=== PATIENT | female | born 1985 ===

== ENCOUNTER 2024-05-27 18:53 | Inpatient (IN) | payer OTHER ==
[~2024-05-27] VITALS: Ht 152.4 cm; Wt 59.0 kg
[2024-05-27 19:38] LABS: BASOPHILS % (AUTO) 0.8 % (0.0-2.0); EOSINOPHILS % (AUTO) 0.4 % (1.0-6.0); HEMATOCRIT 43.5 % (36-46); HEMOGLOBIN 14.2 g/dL (12.0-16.0); LYMPHOCYTES # (AUTO) 1.7 K/uL (1.0-4.8); LYMPHOCYTES % (AUTO) 16.3 % (22.0-44.0); MEAN CORPUSCULAR HEMOGLOBIN 27.5 pg (26.0-34.0); MEAN CORPUSCULAR HGB CONC 32.8 G/dL (31.0-37.0); MEAN CORPUSCULAR VOLUME 84 fL (80-100); MONOCYTES % (AUTO) 9.3 % (2.0-9.0); NEUTROPHILS # (AUTO) 7.8 K/uL (1.8-7.7); NEUTROPHILS % (AUTO) 73.2 % (40.0-70.0); PLATELET COUNT (AUTO) 441 K/uL (150-450); RED BLOOD CELL COUNT(AUTO) 5.17 MIL/uL (4.00-5.20); RED CELL DISTRIBUTION WIDTH 16.8 % (11.5-14.5); WHITE BLOOD COUNT (AUTO) 10.7 K/uL (4.5-11.0)
[2024-05-27 19:42] LABS: ANION GAP 14 mmol/L (8-16); CALCIUM, TOTAL 9.9 mg/dL (8.8-10.5); CARBON DIOXIDE 26 mmol/L (22-29); CHLORIDE 101 mmol/L (98-107); GLOMERULAR FILTR. RATE CALC > 60 mL/min (>60); GLUCOSE,RANDOM 98 mg/dL (70-110); POTASSIUM 3.8 mmol/L (3.5-5.1); SODIUM SERUM 141 mmol/L (136-145); UREA NITROGEN, BLOOD 12 mg/dL (7-18)
[2024-05-27 19:48] LABS: ALCOHOL, BLOOD (SERUM) < 3 mg/dL (0-10)
[2024-05-27 20:58] LABS: COVID AG,FIA SOURCE NASAL SWAB
[2024-05-27 21:18] LABS: SARS-COV2 (COVID) ANTIGEN,FIA Negative (Negative)
[2024-05-27] MEDS ORDERED: HALOPERIDOL 5 MG TABLET PO PRN (22:00)
[2024-05-27 23:38] VITALS: O2SAT 99
[2024-05-27 23:51] LABS: APPEARANCE,URINE HAZY (CLEAR); BILIRUBIN,URINE NEGATIVE (NEGATIVE); COLOR,URINE YELLOW (YELLOW); GLUCOSE, URINE (UA) NEGATIVE (NEGATIVE); LEUKOCYTE ESTERASE ,URINE SMALL (NEGATIVE); NITRATE,URINE NEGATIVE (NEGATIVE); OCCULT BLOOD,URINE NEGATIVE (NEGATIVE); PH,URINE 5.5 (5.0-8.0); PROTEIN,URINE 30-70 mg/dL (NEGATIVE); SPECIFIC GRAVITIY, URINE 1.028 (1.003-1.030); UROBILINOGEN,URINE <=1.0 mg/dL (<=1.0)
[2024-05-27 23:52] LABS: PH,URINE DRUG SCREEN 5.5 (5.0-8.0)
[2024-05-27 23:56] LABS: ALCOHOL, URINE DRUG SCREEN NEGATIVE (NEGATIVE); AMPHET/METH SCREEN,URINE POSITIVE (NEGATIVE); BARBITURATE SCREEN, URINE NEGATIVE (NEGATIVE); BENZODIAZEPINES SCREEN,URINE NEGATIVE (NEGATIVE); CANNABINOID SCREEN,URINE POSITIVE (NEGATIVE); COCAINE SCREEN,URINE NEGATIVE (NEGATIVE); METHADONE SCREEN, URINE NEGATIVE (NEGATIVE); OPIATE SCREEN,URINE NEGATIVE (NEGATIVE); PHENCYCLIDINE SCREEN,URINE NEGATIVE (NEGATIVE)
[2024-05-28 00:14] LABS: RBC,URINE None Seen /HPF (0-2)
[2024-05-28 00:15] LABS: BACTERIA,URINE None Seen /HPF (None Seen); SQUAMOUS EPITHELIAL CELL,UR Moderate /LPF (None Seen); WBC,URINE 0-2 /HPF (0-5)
[2024-05-28] MEDS: ZOLPIDEM TARTRATE 10 MG TABLET PO PRN (01:56)
[2024-05-28 02:03] VITALS: BP 110/68; PULSE 78; RESP 17; TEMP 98; O2SAT 98
[2024-05-28] MEDS: LORazepam 2 MG TABLET PO PRN (07:56)
[2024-05-28 08:25] VITALS: BP 130/78; PULSE 83; RESP 16; TEMP 98.2; O2SAT 99
[2024-05-28] MEDS: SERTRALINE HCL 50 MG TABLET PO SCH (10:09)
[2024-05-28] MEDS ORDERED: GuaiFENesin/D-METHORPHAN [SUGAR-FREE] 200-20MG/10 ML SYRUP UDCUP PO PRN (12:45)
[2024-05-28] MEDS ORDERED: CloNIDine HCL 0.1 MG TABLET PO PRN (12:45)
[2024-05-28] MEDS ORDERED: LOPERAMIDE HCL 2 MG CAPSULE PO PRN (12:45)
[2024-05-28] MEDS ORDERED: ACETAMINOPHEN 325 MG TABLET PO PRN (12:45)
[2024-05-28] MEDS ORDERED: MAGNESIUM HYDROXIDE SUSPENSION 30 ML UDCUP PO PRN (12:45)
[2024-05-28] MEDS ORDERED: MAG HYDROX/ALUMINUM HYD/SIMETH ES 30 ML SUSPENSION UDCUP PO PRN (12:45)
[2024-05-28] MEDS ORDERED: ALBUTEROL SULFATE HFA 90 MCG/PUFF 8 GM INHALER IH PRN (12:45)
[2024-05-28] MEDS ORDERED: NICOTINE 14 MG/24 HOUR PATCH TD PRN (12:45)
[2024-05-28] MEDS ORDERED: ONDANSETRON 4 MG TABLET PO PRN (12:45)
[2024-05-28] MEDS ORDERED: IBUPROFEN 400 MG TABLET PO PRN (12:45)
[2024-05-28] MEDS ORDERED: DOCUSATE SODIUM 100 MG CAPSULE PO PRN (12:45)
[2024-05-28] MEDS ORDERED: PETROLATUM,WHITE 28 GM JELLY TP PRN (12:45)
[2024-05-28 21:00] VITALS: BP 126/72; PULSE 76; RESP 18; TEMP 98; O2SAT 98
[2024-05-29 08:22] VITALS: BP 101/63; PULSE 80; RESP 16; TEMP 98.3; O2SAT 100
[2024-05-29 08:54] LABS: HEMOGLOBIN A1C 5.3 % (3.8-5.6)
[2024-05-29 09:02] LABS: THYROID STIMULATING HORMONE 0.27 uIU/mL (0.36-3.74)
[2024-05-29 09:14] LABS: CHOL/HDL RATIO 4.5 (3.9-5.7)
[2024-05-29 20:39] VITALS: BP 105/62; PULSE 66; RESP 17; TEMP 97; O2SAT 98
[2024-05-30 08:09] VITALS: BP 103/64; PULSE 69; RESP 16; TEMP 97.4; O2SAT 96
[2024-05-30] MEDS ORDERED: SERT-439 PO (13:26)
== END 2024-05-30 18:40 | disposition home or self-care (01) | DRG 885 ==
LOC: EMS 18:53 → B3A 23:11
PROVIDERS: ADMIT Psychiatry & Neurology Psychiatry; ATTEND Psychiatry & Neurology Psychiatry
PROC: GZHZZZZ Group Psychotherapy (ICD-10-PCS; principal; 2024-05-28)
DX: F33.2 Major depressive disorder, recurrent severe without psychotic features (principal); R45.851 Suicidal ideations; G47.00 Insomnia, unspecified; F41.9 Anxiety disorder, unspecified; S61.512A Laceration without foreign body of left wrist, initial encounter; Z20.822 Contact with and (suspected) exposure to COVID-19; F12.10 Cannabis abuse, uncomplicated; F15.10 Other stimulant abuse, uncomplicated; X78.8XXA Intentional self-harm by other sharp object, initial encounter; Y93.89 Activity, other specified; Y92.89 Other specified places as the place of occurrence of the external cause; Y99.8 Other external cause status; Z79.899 Other long term (current) drug therapy
CPT/HCPCS: 80048; 80061; 80307; 81001; 83036; 84443; 85025; 99285; G0480